=== PATIENT | female | born 1985 | race Caucasian/White ===

== ENCOUNTER 2019-02-17 07:02 | Emergency (ER) | payer OTHER ==
[~2019-02-17] VITALS: Ht 160 cm; Wt 56.0 kg
[2019-02-17 08:01] LABS: BILIRUBIN,URINE NEGATIVE (NEGATIVE); CLARITY,URINE CLEAR; COLOR,URINE YELLOW; GLUCOSE, URINE (UA) NEGATIVE (NEGATIVE); KETONES,URINE NEGATIVE (NEGATIVE); LEUKOCYTE ESTERASE ,URINE TRACE (NEGATIVE); NITRITE,URINE NEGATIVE (NEGATIVE); PROTEIN,URINE NEGATIVE (NEGATIVE)
[2019-02-17 08:12] LABS: AMORPHOUS SEDIMENT,UR MOD AMOR PHOSPHATE /LPF; BACTERIA,URINE NEGATIVE /HPF; RBC,URINE RARE /HPF
[2019-02-17 08:15] LABS: BASOPHILS % (AUTO) 0 % (0-10); EOSINOPHILS # (AUTO) 0.1 10^3/uL (0.0-0.3); EOSINOPHILS % (AUTO) 1 % (0-10); HEMATOCRIT 31 % (35-52); HEMOGLOBIN 10.4 G/DL (11.5-16.0); LYMPHOCYTES # (AUTO) 1.4 X 10^3 (1.0-4.0); LYMPHOCYTES % (AUTO) 11 % (12-44); MEAN CORPUSCULAR HEMOGLOBIN 32 PG (25-34); MEAN CORPUSCULAR HGB CONC 33 G/DL (32-36); MEAN CORPUSCULAR VOLUME 97 FL (80-99); MEAN PLATELET VOLUME 9.2 FL (7.4-10.4); MONOCYTES # (AUTO) 1.1 X 10^3 (0.0-1.0); MONOCYTES % (AUTO) 9 % (0-12); NEUTROPHILS # (AUTO) 9.6 X 10^3 (1.8-7.8); NEUTROPHILS % (AUTO) 79 % (42-75); PLATELET COUNT 274 10^3/uL (130-400); RED CELL DISTRIBUTION WIDTH 13.4 % (10.0-14.5); WHITE BLOOD COUNT 12.2 10^3/uL (4.3-11.0)
[2019-02-17] MEDS ORDERED: LACTATED RINGERS 1,000 ML IV ONE (08:32)
[2019-02-17] MEDS ORDERED: PROMETHAZINE INJ 25 MG/ML (PHENERGAN) AMP IVP ONE (08:45)
[2019-02-17 08:52] LABS: BUN/CREATININE RATIO 16; CALCIUM 8.7 MG/DL (8.5-10.1); CARBON DIOXIDE 23 MMOL/L (21-32); CHLORIDE 103 MMOL/L (98-107); GFR ESTIMATED > 60; GLUCOSE 83 MG/DL (70-105); SODIUM 136 MMOL/L (135-145)
--- NOTE | 2019-02-17 09:10 | ED GU-Female ---
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 PT STATES SHE IS 16WKS . DENIES A HX OF IRREGULAR BLEEDING WITH PREVIOUS Nursing Sepsis Screen: No Definite Risk Source: patient, police Exam Limitations: no limitations History of Present Illness Date Seen by Provider: Feb 17, 2019 Time Seen by Provider: 07:05 Initial Comments This 33-year-old woman at approximately 16 weeks gestational age presents to the emergency room with complaints of vaginal bleeding that started yesterday as bright red and has now become dark. She has some mild cramping associated with it. She also complains of some lightheadedness upon standing. She has had some nausea without vomiting. She established care with Dr. Alvarenga. She missed her ultrasound appointment and has not had an ultrasound yet for this . She did have a pelvic exam and has not been sexually active since then as she is incarcerated. She does have history of methamphetamine use with last use being 23 days ago. She denies any urinary changes. She is accompanied today by a certification officer. Allergies and Home Medications Allergies Coded Allergies: No Known Drug Allergies (Unverified , 02/17/19) Home Medications Promethazine HCl 12.5 Mg Tablet, 12.5 MG PO Q6H PRN for NAUSEA/VOMITING Prescribed by: JAUN AREVALO on 02/17/19 0913 Patient Home Medication List Home Medication List Reviewed: Yes Review of Systems Review of Systems Constitutional: no symptoms reported EENTM: no symptoms reported Respiratory: no symptoms reported Cardiovascular: no symptoms reported Gastrointestinal: no symptoms reported Genitourinary: see HPI : Yes Expected Date of Delivery: August 01, 2019 Musculoskeletal: no symptoms reported Skin: no symptoms reported Psychiatric/Neurological: No Symptoms Reported Endocrine: No Symptoms Reported Past Wymvrhb-Xvsonu-Dhwpyh Hx Past Med/Social Hx: Reviewed Nursing Past Med/Soc Hx Patient Social History Alcohol Use: Denies Use Recreational Drug Use: Yes Drug of Choice: meth hx Smoking Status: Current Everyday Smoker Type Used: Cigarettes Recent Foreign Travel: No Contact w/Someone Who Travel: No Recent Infectious Disease Expo: No Recent Hopitalizations: No Physical Abuse: No Sexual Abuse: No Mistreated: No Fear: No Immunizations Up To Date Tetanus Booster (TDap): Less than 5yrs Seasonal Allergies Seasonal Allergies: No Past Medical History Surgeries: Yes (cervical cysts removed.) Respiratory: No Cardiac: No Neurological: No : Yes Expected Date of Delivery: August 01, 2019 Reproductive Disorders: Yes (Cervical cyst) Genitourinary: No Gastrointestinal: No Musculoskeletal: No Endocrine: No HEENT: No Cancer: No Psychosocial: No Integumentary: No Blood Disorders: No Physical Exam Vital Signs Vital Signs - First Documented 02/17/19 07:36 Temp 36.9 Pulse 76 Resp 18 B/P (MAP) 90/62 (71) Pulse Ox 99 O2 Delivery Room Air Capillary Refill : Less Than 3 Seconds Height, Weight, BMI Height: '" Weight: lbs. oz. kg; 21.00 BMI Method: General Appearance: WD/WN, no apparent distress HEENT: PERRL/EOMI, normal ENT inspection Neck: normal inspection Cardiovascular: regular rate, rhythm, no edema, no murmur Respiratory: lungs clear, normal breath sounds, no respiratory distress, no accessory muscle use Gastrointestinal: normal bowel sounds, non tender, soft, other (Appropriately gravid for gestational age) Extremities: normal inspection, no pedal edema Neurologic/Psychiatric: it technician II-XII nml as tested, no motor/sensory deficits, alert, normal mood/affect, oriented x 3 Skin: normal color, warm/dry Progress/Results/Core Measures Suspected Sepsis Recent Fever Within 48 Hours: No Infection Criteria Present: Suspected New Infection New/Unexplained Altered Menta: No Sepsis Screen: No Definite Risk SIRS Temperature: Pulse: 76 Respiratory Rate: 18 Laboratory Tests 02/17/19 08:05: White Blood Count 12.2H Blood Pressure 90 /62 Mean: 71 Laboratory Tests 02/17/19 08:05: Creatinine 0.70, Platelet Count 274 Results/Orders Lab Results Laboratory Tests Test 02/17/19 07:53 02/17/19 08:05 Range/Units Urine Color YELLOW Urine Clarity CLEAR Urine pH 8.0 5-9 Urine Specific [place] 1.015 L 1.016-1.022 Urine Protein NEGATIVE NEGATIVE Urine Glucose (UA) NEGATIVE NEGATIVE Urine Ketones NEGATIVE NEGATIVE Urine Nitrite NEGATIVE NEGATIVE Urine Bilirubin NEGATIVE NEGATIVE Urine Urobilinogen 0.2 < = 1.0 MG/DL Urine Leukocyte Esterase TRACE NEGATIVE Urine RBC (Auto) 1+ H NEGATIVE Urine RBC RARE /HPF Urine WBC 2-5 /HPF Urine Squamous Epithelial Cells 2-5 /HPF Urine Crystals NONE /LPF Urine Amorphous Sediment MOD KVNG PHOSPHATE H /LPF Urine Bacteria NEGATIVE /HPF Urine Casts NONE /LPF Urine Mucus NEGATIVE /LPF Urine Culture Indicated NO White Blood Count 12.2 H 4.3-11.0 10^3/uL Red Blood Count 3.24 L 4.35-5.85 10^6/uL Hemoglobin 10.4 L 11.5-16.0 G/DL Hematocrit 31 L 35-52 % Mean Corpuscular Volume 97 80-99 FL Mean Corpuscular Hemoglobin 32 25-34 PG Mean Corpuscular Hemoglobin Concent 33 32-36 G/DL Red Cell Distribution Width 13.4 10.0-14.5 % Platelet Count 274 130-400 10^3/uL Mean Platelet Volume 9.2 7.4-10.4 FL Neutrophils (%) (Auto) 79 H 42-75 % Lymphocytes (%) (Auto) 11 L 12-44 % Monocytes (%) (Auto) 9 0-12 % Eosinophils (%) (Auto) 1 0-10 % Basophils (%) (Auto) 0 0-10 % Neutrophils # (Auto) 9.6 H 1.8-7.8 X 10^3 Lymphocytes # (Auto) 1.4 1.0-4.0 X 10^3 Monocytes # (Auto) 1.1 H 0.0-1.0 X 10^3 Eosinophils # (Auto) 0.1 0.0-0.3 10^3/uL Basophils # (Auto) 0.0 0.0-0.1 10^3/uL Sodium Level 136 135-145 MMOL/L Potassium Level 4.0 3.6-5.0 MMOL/L Chloride Level 103 98-107 MMOL/L Carbon Dioxide Level 23 21-32 MMOL/L Anion Gap 10 5-14 MMOL/L Blood Urea Nitrogen 11 7-18 MG/DL Creatinine 0.70 0.60-1.30 MG/DL Estimat Glomerular Filtration Rate > 60 BUN/Creatinine Ratio 16 Glucose Level 83 70-105 MG/DL Calcium Level 8.7 8.5-10.1 MG/DL My Orders Orders - JAUN FUNES MD Cbc With Automated Diff (02/17/19 07:05) Ua Culture If Indicated (02/17/19 07:05) Abo Rh Type (02/17/19 07:05) Basic Metabolic Panel (02/17/19 08:32) Ed Iv/Invasive Line Start (02/17/19 08:32) Lactated Ringers (Lr 1000 Ml Iv Solution (02/17/19 08:32) Promethazine Injection (Phenergan Injec (02/17/19 08:45) Medications Given in ED Current Medications Medications Dose Ordered Sig/Rob Route Start Time Stop Time Status Last Admin Dose Admin Lactated Ringer's 1,000 ml @ 0 mls/hr Q0M ONCE IV 02/17/19 08:32 02/17/19 08:34 DC 02/17/19 08:41 1,000 MLS/HR Promethazine HCl 12.5 mg ONCE ONCE IVP 02/17/19 08:45 02/17/19 08:46 DC 02/17/19 08:41 12.5 MG Vital Signs/I&O 02/17/19 10:05 Pulse 88 Resp 20 B/P (MAP) 93/52 Pulse Ox 99 O2 Delivery Room Air Capillary Refill : Less Than 3 Seconds Blood Pressure Mean: 71 POS Progress Note : Progress Note heart tones were 130s to 150 by Doppler. Workup was unremarkable. Blood type is a positive. I discussed the case with Dr. Garibay who will help make sure patient has follow-up in the clinic. Departure Impression Primary Impression: Vaginal bleeding during Additional Impressions: Dizziness Nausea Disposition: 01 HOME, SELF-CARE Condition: Improved Departure-Patient Inst. Decision time for Depature: 09:45 Referrals: [facility] (PCP/Family) Primary Care Physician Patient Instructions: Bleeding With (DC) Add. Discharge Instructions: Drink plenty of clear liquids to stay well-hydrated. Use Phenergan (promethazine) as prescribed for nausea and vomiting. Follow-up with the [facility] as soon as possible to obtain an ultrasound and a checkup. Please call tomorrow morning for arrangements. Return to the emergency room if you have worsening pain, significant increase in bleeding, worsening dizziness, or develop fevers over 100. All discharge instructions reviewed with patient and/or family. Voiced understanding. Scripts Promethazine HCl (Promethazine HCl) 12.5 Mg Tablet 12.5 MG PO Q6H PRN for NAUSEA/VOMITING, #20 TAB Prov: BRUEGGEMANN,JAUN T MD 02/17/19 Copy Copies To 1: BRAD ALVARENGA MD, JOSHUA T MD Feb 17, 2019 09:09 POS
[2019-02-17] MEDS ORDERED: PROM12.511 PO (09:50)
[2019-02-17 10:05] VITALS: BP 93/52
== END 2019-02-17 10:05 | disposition home or self-care (01) ==
LOC: ER 07:04
DX: O20.9 Hemorrhage in early pregnancy, unspecified (principal); O26.892 Other specified pregnancy related conditions, second trimester; R42 Dizziness and giddiness; R11.0 Nausea; O99.332 Smoking (tobacco) complicating pregnancy, second trimester; F17.210 Nicotine dependence, cigarettes, uncomplicated; Z3A.16 16 weeks gestation of pregnancy
CPT/HCPCS: 36415; 80048; 81000; 85025; 86900; 86901; 96361; 96374

== ENCOUNTER 2019-05-26 21:12 | Outpatient (CLI) | payer MEDICAID ==
[~2019-05-26] VITALS: Ht 160 cm; Wt 72.9 kg
[~2019-05-26 21:12] MED LIST: PROM12.511 PO
--- NOTE | 2019-05-26 21:15 | NUR ---
TWIN BEAVER presented to unit via AMBULATORY from ED, with c/o 28 5/7 SHARP PAIN/PRESSURE . TWIN BEAVER weighed, gowned, voided, and to bed. EFHM and TOCO applied, VS taken. TWIN BEAVER oriented to bed controls, call light, TV, heat, and A/C controls.
[2019-05-26 21:45] LABS: BILIRUBIN,URINE NEGATIVE (NEGATIVE); CLARITY,URINE CLEAR; COLOR,URINE YELLOW; GLUCOSE, URINE (UA) NEGATIVE (NEGATIVE); KETONES,URINE NEGATIVE (NEGATIVE); LEUKOCYTE ESTERASE ,URINE NEGATIVE (NEGATIVE); NITRITE,URINE NEGATIVE (NEGATIVE); PROTEIN,URINE NEGATIVE (NEGATIVE)
[2019-05-26 21:51] LABS: BACTERIA,URINE TRACE /HPF; WBC,URINE RARE /HPF
[2019-05-26 21:56] LABS: AMPHETAMINE SCREEN, URINE NEGATIVE (NEGATIVE); BARBITURATE SCREEN URINE NEGATIVE (NEGATIVE); BENZODIAZEPINES SCREEN URINE NEGATIVE (NEGATIVE); CANNABINOID SCREEN, URINE NEGATIVE (NEGATIVE); COCAINE SCREEN URINE NEGATIVE (NEGATIVE); METHADONE STAT NEGATIVE (NEGATIVE); METHAMPHETAMINE SCREEN URINE S NEGATIVE (NEGATIVE); OPIATE SCREEN URINE NEGATIVE (NEGATIVE); OXYCODONE STAT NEGATIVE (NEGATIVE); PROPOXYPHENE STAT NEGATIVE (NEGATIVE); TRICYCLIC ANTIDEPRESSANTS SCRE NEGATIVE (NEGATIVE)
[2019-05-26 22:33] VITALS: BP 127/77
--- NOTE | 2019-05-26 22:35 | NUR ---
notified of pt's arrival and complaint. u/a and tracing reviewed. New orders received.
[2019-05-26 22:59] LABS: BASOPHILS % (AUTO) 0 % (0-10); EOSINOPHILS # (AUTO) 0.3 10^3/uL (0.0-0.3); EOSINOPHILS % (AUTO) 1 % (0-10); HEMATOCRIT 32 % (35-52); HEMOGLOBIN 10.7 G/DL (11.5-16.0); LYMPHOCYTES # (AUTO) 2.2 X 10^3 (1.0-4.0); LYMPHOCYTES % (AUTO) 12 % (12-44); MEAN CORPUSCULAR HEMOGLOBIN 33 PG (25-34); MEAN CORPUSCULAR HGB CONC 34 G/DL (32-36); MEAN CORPUSCULAR VOLUME 100 FL (80-99); MEAN PLATELET VOLUME 9.4 FL (7.4-10.4); MONOCYTES # (AUTO) 1.9 X 10^3 (0.0-1.0); MONOCYTES % (AUTO) 10 % (0-12); NEUTROPHILS # (AUTO) 13.7 X 10^3 (1.8-7.8); NEUTROPHILS % (AUTO) 76 % (42-75); PLATELET COUNT 302 10^3/uL (130-400); RED CELL DISTRIBUTION WIDTH 12.4 % (10.0-14.5); WHITE BLOOD COUNT 18.1 10^3/uL (4.3-11.0)
--- NOTE | 2019-05-26 23:00 | NUR ---
notified of lab results. new orders received.
[2019-05-26 23:12] LABS: BAND NEUTROPHILS 0 %; BASOPHILS % (MANUAL) 0 %; EOSINOPHILS % (MANUAL) 2 %; LYMPHOCYTES % (MANUAL) 16 %; MONOCYTES % (MANUAL) 5 %; NEUTROPHILS % (MANUAL) 77 %; RBC MORPH NORMAL; TOXIC GRANULATION/VACUOLAZATIO 1+
[2019-05-26] MEDS ORDERED: ACETAMINOPHEN 325 MG TABLET PO ONE (23:15)
--- NOTE | 2019-05-27 00:36 | NUR ---
Pt reports she is feeling a lot better and ready for discharge. Discharge instructions verbalized. labor precautions given. Pt dc'd home with s/o at side.
== END 2019-05-27 00:40 | disposition home or self-care (01) ==
LOC: WSo 21:12
PROVIDERS: ATTEND Family Medicine
DX: O99.89 Other specified diseases and conditions complicating pregnancy, childbirth and the puerperium (principal); Z3A.28 28 weeks gestation of pregnancy
CPT/HCPCS: 36415; 80306; 81000; 85007; 85027; 99213

== ENCOUNTER 2019-06-12 15:49 | Observation (INO) | payer MEDICAID ==
[~2019-06-12] VITALS: Ht 160 cm; Wt 71.4 kg
[2019-06-12] VITALS (8 sets, daily range): BP systolic 80–101; BP diastolic 43–58
--- NOTE | 2019-06-12 15:43 | NUR ---
TWIN BEAVER presented to unit via AMBULATORY from OFFICE, with c/o BLEEDING IN . TWIN BEAVER weighed, gowned, voided, and to bed. EFHM and TOCO applied, VS taken. TWIN BEAVER oriented to bed controls, call light, TV, heat, and A/C controls.
[2019-06-12] MEDS: D5 LR IV SOLUTION 1,000 ML IV SCH ×2 (16:20→23:07)
[2019-06-12 16:39] LABS: BASOPHILS # (AUTO) 0.1 10^3/uL (0.0-0.1); BASOPHILS % (AUTO) 1 % (0-10); EOSINOPHILS # (AUTO) 0.2 10^3/uL (0.0-0.3); EOSINOPHILS % (AUTO) 2 % (0-10); HEMATOCRIT 30 % (35-52); HEMOGLOBIN 10.2 G/DL (11.5-16.0); LYMPHOCYTES # (AUTO) 1.9 X 10^3 (1.0-4.0); LYMPHOCYTES % (AUTO) 18 % (12-44); MEAN CORPUSCULAR HEMOGLOBIN 33 PG (25-34); MEAN CORPUSCULAR HGB CONC 34 G/DL (32-36); MEAN CORPUSCULAR VOLUME 97 FL (80-99); MEAN PLATELET VOLUME 9.9 FL (7.4-10.4); MONOCYTES # (AUTO) 1.1 X 10^3 (0.0-1.0); MONOCYTES % (AUTO) 11 % (0-12); NEUTROPHILS # (AUTO) 7.1 X 10^3 (1.8-7.8); NEUTROPHILS % (AUTO) 69 % (42-75); PLATELET COUNT 282 10^3/uL (130-400); RED CELL DISTRIBUTION WIDTH 12.6 % (10.0-14.5); WHITE BLOOD COUNT 10.4 10^3/uL (4.3-11.0)
[2019-06-12 16:54] LABS: AMPHETAMINE SCREEN, URINE NEGATIVE (NEGATIVE); BARBITURATE SCREEN URINE NEGATIVE (NEGATIVE); BENZODIAZEPINES SCREEN URINE NEGATIVE (NEGATIVE); CANNABINOID SCREEN, URINE NEGATIVE (NEGATIVE); COCAINE SCREEN URINE NEGATIVE (NEGATIVE); METHADONE STAT NEGATIVE (NEGATIVE); METHAMPHETAMINE SCREEN URINE S NEGATIVE (NEGATIVE); OPIATE SCREEN URINE NEGATIVE (NEGATIVE); OXYCODONE STAT NEGATIVE (NEGATIVE); PROPOXYPHENE STAT NEGATIVE (NEGATIVE); TRICYCLIC ANTIDEPRESSANTS SCRE NEGATIVE (NEGATIVE)
[2019-06-12 17:04] LABS: ALANINE AMINOTRANSFERASE 12 U/L (0-55); ALBUMIN 3.5 GM/DL (3.2-4.5); ALKALINE PHOSPHATASE 98 U/L (40-136); BILIRUBIN,TOTAL 0.3 MG/DL (0.1-1.0); BUN/CREATININE RATIO 13; CALCIUM 8.8 MG/DL (8.5-10.1); CARBON DIOXIDE 24 MMOL/L (21-32); CHLORIDE 107 MMOL/L (98-107); CREATININE SERUM 0.68 MG/DL (0.60-1.30); GFR ESTIMATED > 60; GLUCOSE 79 MG/DL (70-105); POTASSIUM 3.7 MMOL/L (3.6-5.0); SODIUM 138 MMOL/L (135-145); TOTAL PROTEIN 6.7 GM/DL (6.4-8.2)
[2019-06-12 17:32] LABS: PROTHROMBIN TIME PATIENT 13.7 SEC (12.2-14.7)
--- NOTE | 2019-06-12 17:33 | NUR ---
Dr Khoury called and labs reported as well as FHR, Ctx pattern, current bleeding, pt requesting food. Order rec'd for regular diet.
[2019-06-12] MEDS: CATHETER FLUSH 10 ML SYR IV SCH (23:02)
[2019-06-13 04:28] VITALS: BP 89/47
[2019-06-13] MEDS: D5 LR IV SOLUTION 1,000 ML IV SCH ×2 (05:45→12:42)
[2019-06-13] MEDS: CATHETER FLUSH 10 ML SYR IV SCH (06:21)
[2019-06-13 07:40] VITALS: BP 101/50
[2019-06-13 10:10] VITALS: BP 101/55
[2019-06-13 12:45] VITALS: BP 101/57
--- NOTE | 2019-06-13 15:10 | NUR ---
dr prieto updated on pt report. 24 hr of fht monitoring will turn at 1600. pt states she has not had any bleeding when she wipes the last 2 times she has gotten up to the bathroom. when she has gotten bleedng when she wiped, today it has been light pink in color and light amount. pt states that her abd is slightly tender when rn presses on abd. rn has had a difficult time keeping on fht monitoring, lots of movement. Dr prieto talked to dr ruelas and they want to prophylacticly treat her for GC/chyl and then discharge her home. Pt will see dr ruelas next week in office. dr prieto will place orders.
[2019-06-13] MEDS ORDERED: [UNRECOGNIZED DRUG - OTHER] IV NR ×3 (15:15)
[2019-06-13] MEDS ORDERED: CEFTRIAXONE FOR IV NR ×3 (15:15)
[2019-06-13] MEDS ORDERED: AZITHROMYCIN 250 MG TAB (ZITHROMAX) PO NR (15:15)
--- NOTE | 2019-06-13 15:15 | Short Stay Summary ---
HPI History of Present Illness: 34 yo F that is 30 wga here for bleeding in . Patient was seen by Dr Vines for pelvic pain and bleeding. States that she feel yesterday on her butt. BPP and NST at clinic were normal. After discussion with Dr Vines on SVE patient had dark old blood coming from cervical os but no bright red blood. Patient stat es that her pain has improved. Denies any red blood and the dark blood is less then it was yesterday. Fetus with good reactive strip on monitoring. Source: patient Exam Limitations: no limitations Date seen by provider: Jun 13, 2019 Time Seen by Provider: 10:05 Attending Physician Jv Khoury MD [facility] Consult Date of Admission Jun 12, 2019 at 15:49 Home Medications Home Medications Reviewed patient Home Medication Reconciliation performed by pharmacy medication reconciliations hvac technician and/or nursing. Patients Allergies have been reviewed. Allergies Coded Allergies: No Known Drug Allergies (Unverified , 02/17/19) ESO-Ohbpqy-Gblsyj Hx Patient Social History Drug of Choice: meth hx last used 2 weeks ago Type Used: Cigarettes 2nd Hand Smoke Exposure: No Recent Foreign Travel: No Contact w/other who traveled: No Recent Hopitalizations: No Immunizations Up To Date Tetanus Booster (TDap): Less than 5yrs Family Medical History Significant Family History: No Pertinent Family Hx Review of Systems (CHC) Constitutional: no symptoms reported; No chills, No fever, No malaise EENTM: no symptoms reported; No mouth pain, No nose congestion, No nose pain, No throat pain Respiratory: no symptoms reported; No cough, No dyspnea on exertion, No short of breath Cardiovascular: no symptoms reported; No chest pain, No edema, No palpitations Gastrointestinal: abdominal pain; No loss of appetite Genitourinary: no symptoms reported; No dysuria, No frequency, No hematuria : Yes Musculoskeletal: no symptoms reported; No back pain, No joint pain, No muscle pain Skin: no symptoms reported; No lesions, No rash Psychiatric/Neurological: No Symptoms Reported; Denies Headache, Denies Weakness Reviewed Test Results Reviewed Test Results Lab Laboratory Tests Test 06/12/19 15:50 06/12/19 16:20 Range/Units Urine Opiates Screen NEGATIVE NEGATIVE Urine Oxycodone Screen NEGATIVE NEGATIVE Urine Methadone Screen NEGATIVE NEGATIVE Urine Propoxyphene Screen NEGATIVE NEGATIVE Urine Barbiturates Screen NEGATIVE NEGATIVE Ur Tricyclic Antidepressants Screen NEGATIVE NEGATIVE Urine Phencyclidine Screen NEGATIVE NEGATIVE Urine Amphetamines Screen NEGATIVE NEGATIVE Urine Methamphetamines Screen NEGATIVE NEGATIVE Urine Benzodiazepines Screen NEGATIVE NEGATIVE Urine Cocaine Screen NEGATIVE NEGATIVE Urine Cannabinoids Screen NEGATIVE NEGATIVE White Blood Count 10.4 4.3-11.0 10^3/uL Red Blood Count 3.13 L 4.35-5.85 10^6/uL Hemoglobin 10.2 L 11.5-16.0 G/DL Hematocrit 30 L 35-52 % Mean Corpuscular Volume 97 80-99 FL Mean Corpuscular Hemoglobin 33 25-34 PG Mean Corpuscular Hemoglobin Concent 34 32-36 G/DL Red Cell Distribution Width 12.6 10.0-14.5 % Platelet Count 282 130-400 10^3/uL Mean Platelet Volume 9.9 7.4-10.4 FL Neutrophils (%) (Auto) 69 42-75 % Lymphocytes (%) (Auto) 18 12-44 % Monocytes (%) (Auto) 11 0-12 % Eosinophils (%) (Auto) 2 0-10 % Basophils (%) (Auto) 1 0-10 % Neutrophils # (Auto) 7.1 1.8-7.8 X 10^3 Lymphocytes # (Auto) 1.9 1.0-4.0 X 10^3 Monocytes # (Auto) 1.1 H 0.0-1.0 X 10^3 Eosinophils # (Auto) 0.2 0.0-0.3 10^3/uL Basophils # (Auto) 0.1 0.0-0.1 10^3/uL Prothrombin Time 13.7 12.2-14.7 SEC INR Comment 1.0 0.8-1.4 Activated Partial Thromboplast Time 27 24-35 SEC Fibrinogen 535 H 221-496 MG/DL Sodium Level 138 135-145 MMOL/L Potassium Level 3.7 3.6-5.0 MMOL/L Chloride Level 107 98-107 MMOL/L Carbon Dioxide Level 24 21-32 MMOL/L Anion Gap 7 5-14 MMOL/L Blood Urea Nitrogen 9 7-18 MG/DL Creatinine 0.68 0.60-1.30 MG/DL Estimat Glomerular Filtration Rate > 60 BUN/Creatinine Ratio 13 Glucose Level 79 70-105 MG/DL Calcium Level 8.8 8.5-10.1 MG/DL Corrected Calcium 9.2 8.5-10.1 MG/DL Total Bilirubin 0.3 0.1-1.0 MG/DL Aspartate Amino Transf (AST/SGOT) 19 5-34 U/L Alanine Aminotransferase (ALT/SGPT) 12 0-55 U/L Alkaline Phosphatase 98 40-136 U/L Total Protein 6.7 6.4-8.2 GM/DL Albumin 3.5 3.2-4.5 GM/DL Physical Exam-([facility]) Physical Exam Vital Signs VS - Last 72 Hours, by Label 06/12/19 06/12/19 06/12/19 06/12/19 16:00 17:00 17:09 17:11 Temp 37.0 37.0 37.0 Pulse 93 81 93 93 Resp 18 18 18 18 B/P (MAP) 101/58 (72) 91/52 (65) Pulse Ox 97 97 O2 Delivery Room Air Room Air 06/12/19 06/12/19 06/12/19 06/12/19 18:00 19:00 20:00 21:50 Temp 36.6 Pulse 99 84 72 78 Resp 18 18 18 18 B/P (MAP) 100/58 (72) 99/56 (70) 94/53 (67) 80/43 (55) Pulse Ox 96 O2 Delivery Room Air Room Air Room Air 06/13/19 06/13/19 04:28 07:40 Temp 36.7 36.8 Pulse 75 73 Resp 18 18 B/P (MAP) 89/47 (61) 101/50 (67) Pulse Ox 97 O2 Delivery Room Air Room Air Capillary Refill : Less Than 3 Seconds General Appearance: WD/WN, no apparent distress HEENT: PERRL/EOMI Neck: non-tender, full range of motion, supple, normal inspection Respiratory: chest non-tender, lungs clear, normal breath sounds, no respiratory distress, no accessory muscle use Cardiovascular: normal peripheral pulses, no murmur Gastrointestinal: normal bowel sounds, soft, no organomegaly, other (gravid uterus, mild pressure with palpation) Back: no CVA tenderness, no vertebral tenderness Extremities: normal range of motion, non-tender, normal inspection, no calf tenderness, normal capillary refill 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, no motor/sensory deficits, alert, normal mood/affect, oriented x 3 Skin: normal color, warm/dry Lymphatic: no adenopathy Short Stay Diagnosis Discharge Diagnosis-Short Stay Admission Diagnosis Bleeding in Third trimester Final Discharge Diagnosis See Above Conclusion Plan See problem list Copy Copies To 1: BRAD VINES MD Assessment/Plan Assessment/Plan Admission Status: Observation (1) Vaginal bleeding in Assessment & Plan: - Patient monitored for 24 hrs, Reactive strip with improved abdominal pain and decrease in bleeding, patient placed on pelvic rest (2) 28 weeks gestation of (3) Abdominal pain affecting JV KHOURY MD Jun 13, 2019 15:15
--- NOTE | 2019-06-13 15:23 | Discharge Summary ---
Discharge [facility] Reconcile Patient Problems Problems Reviewed?: Yes Discharge Medications New, Converted or Re-Newed RX: Other (No new scripts) Patient Instructions Goal/Follow Up Appt: Enid Vines next week Patient Instructions: - Pelvic rest, no intercourse Activity & Diet Discharge Diet: No Restrictions Activity as Tolerated: Yes JV JIMENEZ MD Jun 13, 2019 15:23
== END 2019-06-13 16:10 | disposition home or self-care (01) ==
LOC: LDRP 15:49
PROVIDERS: ADMIT Family Medicine; ATTEND Family Medicine
DX: O46.93 Antepartum hemorrhage, unspecified, third trimester (principal); O99.89 Other specified diseases and conditions complicating pregnancy, childbirth and the puerperium; R10.9 Unspecified abdominal pain; Z87.891 Personal history of nicotine dependence; Z3A.28 28 weeks gestation of pregnancy
CPT/HCPCS: 36415; 80053; 80306; 85025; 85384; 85610; 85730; 86850; 86900; 86901; 96361; 96374; 99211; G0378

== ENCOUNTER 2019-08-04 12:38 | Outpatient (CLI) | payer MEDICAID ==
[~2019-08-04] VITALS: Ht 160 cm; Wt 75.4 kg
[2019-08-04 12:40] VITALS: BP 109/71
--- NOTE | 2019-08-04 12:40 | NUR ---
TWIN BEAVER presented to unit via ambulation from ED, accompanied by self, with c/o LEAKING FLUID. TWIN BEAVER weighed, gowned, voided, and to bed. EFHM and TOCO applied, VS taken. TWIN BEAVER oriented to bed controls, call light, TV, heat, and A/C controls.
[2019-08-04 13:00] VITALS: BP 109/71
[2019-08-04 13:30] VITALS: BP 109/71
[2019-08-04 13:58] LABS: BILIRUBIN,URINE NEGATIVE (NEGATIVE); CLARITY,URINE CLEAR; COLOR,URINE YELLOW; GLUCOSE, URINE (UA) NEGATIVE (NEGATIVE); KETONES,URINE NEGATIVE (NEGATIVE); LEUKOCYTE ESTERASE ,URINE 2+ (NEGATIVE); NITRITE,URINE NEGATIVE (NEGATIVE); PH,URINE 6.5 (5-9); PROTEIN,URINE NEGATIVE (NEGATIVE)
[2019-08-04 14:07] LABS: BACTERIA,URINE FEW /HPF; TRICHOMONAS,URINE MODERATE /HPF
[2019-08-04 14:27] LABS: AMPHETAMINE SCREEN, URINE NEGATIVE (NEGATIVE); BARBITURATE SCREEN URINE NEGATIVE (NEGATIVE); BENZODIAZEPINES SCREEN URINE NEGATIVE (NEGATIVE); CANNABINOID SCREEN, URINE NEGATIVE (NEGATIVE); COCAINE SCREEN URINE NEGATIVE (NEGATIVE); METHADONE STAT NEGATIVE (NEGATIVE); METHAMPHETAMINE SCREEN URINE S NEGATIVE (NEGATIVE); OPIATE SCREEN URINE NEGATIVE (NEGATIVE); OXYCODONE STAT NEGATIVE (NEGATIVE); PROPOXYPHENE STAT NEGATIVE (NEGATIVE); TRICYCLIC ANTIDEPRESSANTS SCRE NEGATIVE (NEGATIVE)
--- NOTE | 2019-08-04 14:55 | NUR ---
dr gonzalez called reviewed vitals, c/o, labs, fhr and contraction pattern. continuing to observe at this time.
--- NOTE | 2019-08-04 17:20 | NUR ---
Dr. Soni updated on patient's status. New orders received (Continue to monitor).
--- NOTE | 2019-08-04 22:20 | NUR ---
Discharge packet given and explained, understanding voiced, no concerns noted, pt up to change for dismissal.
--- NOTE | 2019-08-04 22:30 | NUR ---
Pt ambulatory off unit at this time accompanied by s/o.
--- NOTE | 2019-08-06 11:03 | Physician Query-Final Dx ---
Clinic Account Progress/Dx Physician Query: Please give diagnosis Please include # of weeks gestation Date of Service August 04, 2019 at 12:38 [address]ER August 06, 2019 11:03
== END 2019-08-04 22:30 | disposition home or self-care (01) ==
LOC: LDRP 12:38 → WSo 12:38
PROVIDERS: ATTEND Family Medicine
DX: O88.119 Amniotic fluid embolism in pregnancy, unspecified trimester (principal); Z3A.00 Weeks of gestation of pregnancy not specified
CPT/HCPCS: 80306; 81000; 87088; 99214

== ENCOUNTER 2019-08-05 10:50 | Outpatient (CLI) | payer MEDICAID ==
[~2019-08-05] VITALS: Ht 160 cm; Wt 75.4 kg
--- NOTE | 2019-08-05 10:57 | NUR ---
TWIN BEAVER presented to unit via ambulation from ED, accompanied by S.O., with c/o CONTRACTIONS. TWIN BEAVER weighed, gowned, voided, and to bed. EFHM and TOCO applied, VS taken. TWIN BEAVER oriented to bed controls, call light, TV, heat, and A/C controls.
[2019-08-05 11:15] VITALS: BP 114/70
[2019-08-05 11:16] VITALS: BP 114/70
[2019-08-05 11:20] VITALS: BP 114/70
[2019-08-05 11:46] LABS: BILIRUBIN,URINE NEGATIVE (NEGATIVE); CLARITY,URINE SL CLOUDY; COLOR,URINE YELLOW; GLUCOSE, URINE (UA) NEGATIVE (NEGATIVE); KETONES,URINE NEGATIVE (NEGATIVE); LEUKOCYTE ESTERASE ,URINE 2+ (NEGATIVE); NITRITE,URINE NEGATIVE (NEGATIVE); PROTEIN,URINE NEGATIVE (NEGATIVE)
[2019-08-05 11:56] LABS: BACTERIA,URINE FEW /HPF; RBC,URINE RARE /HPF; TRICHOMONAS,URINE FEW /HPF; WBC,URINE 25-50 /HPF
--- NOTE | 2019-08-05 12:14 | NUR ---
dr prieto called by this rn at this time with pt report. pt CO uc q 10min and losing mucus plug. pt 38.5wk, . currently irregular UC 3-10 min apart over the last hour. Reactive FHT strip with accels, had one random variable. Pt was here yesterday /last night for same complaint. positive for tric, not treated, Rx was called to [facility] pharmacy but pt has not filled. urinalysis results read to dr. alfred RN SVE is 2cm, which is no change from yesterdays SVE. Dr prieto orders to give pt Flagyl 2g one time dose PO, vistaril 25, make sure pt follows up with dr ruelas in office this week (pt follows up tomorrow), pt may DC to home at this time time.
[2019-08-05] MEDS ORDERED: hydrOXYzine (VISTARIL/ATARAX) 25 MG capsule/tablet PO NR (12:30)
[2019-08-05] MEDS ORDERED: metroNIDAZOLE 500 MG (FLAGYL) TAB PO NR (12:30)
--- NOTE | 2019-08-06 11:00 | Physician Query-Final Dx ---
Clinic Account Progress/Dx Physician Query: Please give diagnosis Please include # weeks gestation Date of Service August 05, 2019 at 10:50 [address]APER August 06, 2019 11:00
== END 2019-08-05 12:45 | disposition home or self-care (01) ==
LOC: WSo 10:50 → LDRP 10:50 → WSo 12:45
PROVIDERS: ATTEND Family Medicine
DX: O62.9 Abnormality of forces of labor, unspecified (principal); Z3A.38 38 weeks gestation of pregnancy
CPT/HCPCS: 81000; 87088; 99213

== ENCOUNTER 2019-08-13 05:05 | Inpatient (IN) | payer MEDICAID ==
[2019-08-13] VITALS (37 sets, daily range): BP systolic 90–127; BP diastolic 44–83
[~2019-08-13] VITALS: Ht 160 cm; Wt 75.3 kg
--- NOTE | 2019-08-13 05:15 | NUR ---
TWIN BEAVER presented to unit via ambulation from home/ED, accompanied by so, for INDUCTION. TWIN BEAVER weighed, gowned, voided, and to bed. EFHM and TOCO applied, VS taken. TWIN BEAVER oriented to bed controls, call light, TV, heat, and A/C controls.
[2019-08-13] MEDS ORDERED: D5 LR IV SOLUTION 1,000 ML IV ONE (05:17)
[2019-08-13] MEDS ORDERED: OXYTOCIN PRE-MIX DRIP 500 ML IV SCH ×2 (05:40→11:48)
[2019-08-13] MEDS ORDERED: D5 LR IV SOLUTION 1,000 ML IV SCH ×2 (05:40→11:48)
[2019-08-13 05:55] LABS: BASOPHILS % (AUTO) 0 % (0-10); EOSINOPHILS # (AUTO) 0.3 10^3/uL (0.0-0.3); EOSINOPHILS % (AUTO) 2 % (0-10); HEMATOCRIT 36 % (35-52); HEMOGLOBIN 12.2 G/DL (11.5-16.0); LYMPHOCYTES # (AUTO) 2.3 X 10^3 (1.0-4.0); LYMPHOCYTES % (AUTO) 21 % (12-44); MEAN CORPUSCULAR HEMOGLOBIN 33 PG (25-34); MEAN CORPUSCULAR HGB CONC 34 G/DL (32-36); MEAN CORPUSCULAR VOLUME 96 FL (80-99); MEAN PLATELET VOLUME 10.8 FL (7.4-10.4); MONOCYTES # (AUTO) 1.2 X 10^3 (0.0-1.0); MONOCYTES % (AUTO) 11 % (0-12); NEUTROPHILS # (AUTO) 7.3 X 10^3 (1.8-7.8); NEUTROPHILS % (AUTO) 66 % (42-75); PLATELET COUNT 270 10^3/uL (130-400); RED CELL DISTRIBUTION WIDTH 14.3 % (10.0-14.5); WHITE BLOOD COUNT 11.2 10^3/uL (4.3-11.0)
[2019-08-13] MEDS ORDERED: CATHETER FLUSH 10 ML SYR IV SCH (06:00)
[2019-08-13] MEDS ORDERED: FERR-84 PO (06:13)
[2019-08-13] MEDS ORDERED: SERT50TA2 PO (06:13)
[2019-08-13] MEDS ORDERED: PREN-142 PO (06:13)
[2019-08-13 06:22] LABS: AMPHETAMINE SCREEN, URINE NEGATIVE (NEGATIVE); BARBITURATE SCREEN URINE NEGATIVE (NEGATIVE); BENZODIAZEPINES SCREEN URINE NEGATIVE (NEGATIVE); CANNABINOID SCREEN, URINE NEGATIVE (NEGATIVE); COCAINE SCREEN URINE NEGATIVE (NEGATIVE); METHADONE STAT NEGATIVE (NEGATIVE); METHAMPHETAMINE SCREEN URINE S NEGATIVE (NEGATIVE); OPIATE SCREEN URINE NEGATIVE (NEGATIVE); OXYCODONE STAT NEGATIVE (NEGATIVE); PROPOXYPHENE STAT NEGATIVE (NEGATIVE); TRICYCLIC ANTIDEPRESSANTS SCRE NEGATIVE (NEGATIVE)
[2019-08-13] MEDS ORDERED: OXYTOCIN PRE-MIX DRIP 500 ML IV ONE (06:24)
--- NOTE | 2019-08-13 08:04 | NUR ---
DR THRASHER, OB CLINICAL CARE LEADER, MADE AWARE OF PT: IOL PT OF DR ALVARENGA CURRENTLY 39WKS 3D, , 4.5CM, AROM.
--- NOTE | 2019-08-13 08:32 | History & Physical-OB ---
OB - Chief Complaint & HPI Date/Time Date of Admission: Date of Admission: August 13, 2019 at 05:05 Date seen by a Provider: August 13, 2019 Time Seen by a Provider: 07:30 Chief Complaint/History OB-Reason for Admission/Chief: Induction of Labor Hx : 2 Hx Para: 1 Expected Date of Delivery: August 17, 2019 Gestational Age in Weeks: 39 Gestational Age in Days: 3 Indication for induction: maternal discomfort Admission Nurse Assessment Rev: Yes History of Labs A+, antibody neg, RI. HIV/HepB/RPR NR. GC neg, Chlamydia pos at intake, treated and ALEKSANDER neg. Glucola nml, GBS neg. Allergies and Home Medications Allergies Coded Allergies: No Known Drug Allergies (Unverified , 02/17/19) Home Medications Ferrous Sulfate 325 Mg Tablet, 325 MG PO DAILY, (Reported) Vit No.124/Iron/FA 1 Each Tablet, 1 EACH PO DAILY, (Reported) Sertraline HCl 50 Mg Tablet, 50 MG PO DAILY, (Reported) Patient Home Medication List Home Medication List Reviewed: Yes OB - History Hx of Present Care: Yes Ultrasounds: Normal mid trimester US Medical Complications: Genitourinary (chlamydia and trichomonas treated during ), Psychiatric (Depression on sertraline), Other (history of methamphetamine use, last use around 04/27/19) Information Induced Hypertension: No Maternal Gestational Diabetes: No Hemorrhage: No Obstetrical History Hx : 2 Hx Para: 1 Hx # Term Pregnancies: 1 Hx # Pregnancies: 0 Number of Living Children: 1 Hx Termination: No Hx Multiple Gestation: No Hx Ectopic : No Hx Stillbirth: No Hx Complication: No Hx Induced Hypertens: No Hx Maternal Gestational Diabet: No Hx Hemorrhage: No Delivery History Hx Dystocia: No Hx Forceps Assisted Delivery: No Hx Vacuum Extraction Assisted: No Hx Placenta Abnormality: No Hx Distress: No Hx Large For Gestational Age I: No Hx Small for Gestational Age I: No Hx Section: No Hx Vaginal Delivery Post C-Sec: No Hx Blood Disorders: No Adverse Rxn to Tranfusion: No Patient Past Medical History PMhx: Depression Methamphetamine use SurgHx: Ovarian cyst removal Breast implants Social History/Family History HIV/AIDS: No Recent Infectious Disease Expo: No Sexually Transmitted Disease: Yes (chlamydia & trich treated during this ) Alcohol Use: Denies Use Recreational Drug Use: Yes (meth, last use 04/2019, has been through treatment this ) Smoking Cessation: Current every day smoker 2nd Hand Smoke Exposure: Yes Immunizations Hepatitis A: No Hepatitis B: No Tetanus Booster (TDap): Less than 5yrs (06/06/19) Rubella: immune RPR/VDRL: Negative GBS Status: Negative HBsAG: Negative OB - Admission Exam Physical Exam Vitals: Vital Signs 08/13/19 05:28 Temp 36.7 Pulse 78 Resp 18 Pulse Ox 98 O2 Delivery Room Air HEENT: NCAT Abdomen: Non tender Extremities: Normal Cervical Dilatation: 4cm Effacement: 50% Station: -3 Heart Rate: 140's Accelerations: Accelerations Present Decelerations: No Decelerations Short Term Variability: Present White Sugar Boiler Variability: Average (6-25) Contractions on Admission: 6-10 Minutes Apart Downs Scoring Tool (Modified) Dilation (cm): 3-4cm (2) Effacement (%): 31-51% (1) Descent/Station: -3 (0) Cervix Consistency: Medium(1) Cervix Position: Anterior (2) Add 1 point for: Each previous vaginal delivery (1) (1) Downs Score: 7 Labs Laboratory Tests Test 08/13/19 05:30 Range/Units White Blood Count 11.2 H 4.3-11.0 10^3/uL Red Blood Count 3.72 L 4.35-5.85 10^6/uL Hemoglobin 12.2 11.5-16.0 G/DL Hematocrit 36 35-52 % Mean Corpuscular Volume 96 80-99 FL Mean Corpuscular Hemoglobin 33 25-34 PG Mean Corpuscular Hemoglobin Concent 34 32-36 G/DL Red Cell Distribution Width 14.3 10.0-14.5 % Platelet Count 270 130-400 10^3/uL Mean Platelet Volume 10.8 H 7.4-10.4 FL Neutrophils (%) (Auto) 66 42-75 % Lymphocytes (%) (Auto) 21 12-44 % Monocytes (%) (Auto) 11 0-12 % Eosinophils (%) (Auto) 2 0-10 % Basophils (%) (Auto) 0 0-10 % Neutrophils # (Auto) 7.3 1.8-7.8 X 10^3 Lymphocytes # (Auto) 2.3 1.0-4.0 X 10^3 Monocytes # (Auto) 1.2 H 0.0-1.0 X 10^3 Eosinophils # (Auto) 0.3 0.0-0.3 10^3/uL Basophils # (Auto) 0.0 0.0-0.1 10^3/uL Urine Opiates Screen NEGATIVE NEGATIVE Urine Oxycodone Screen NEGATIVE NEGATIVE Urine Methadone Screen NEGATIVE NEGATIVE Urine Propoxyphene Screen NEGATIVE NEGATIVE Urine Barbiturates Screen NEGATIVE NEGATIVE Ur Tricyclic Antidepressants Screen NEGATIVE NEGATIVE Urine Phencyclidine Screen NEGATIVE NEGATIVE Urine Amphetamines Screen NEGATIVE NEGATIVE Urine Methamphetamines Screen NEGATIVE NEGATIVE Urine Benzodiazepines Screen NEGATIVE NEGATIVE Urine Cocaine Screen NEGATIVE NEGATIVE Urine Cannabinoids Screen NEGATIVE NEGATIVE OB - Assessment/Plan/Diagnosis Assessment Assessment: induction of labor Admission Dx Induction of labor 39 weeks gestation GBS neg History of methamphetamine use Admission Status: Inpatient Order (span 2 midnights) Reason for Inpatient Admission: Induction, labor, delivery and course Plan Plan: Induction Induction Method: per Pitocin Protocol BRAD ALVARENGA MD August 13, 2019 08:32
[2019-08-13] MEDS: LACTATED RINGERS 1,000 ML IV PRN ×2 (09:30→11:10)
--- NOTE | 2019-08-13 09:30 | NUR ---
WALI CARLSON VP SITE CALLED AT THIS TIME FOR EPIDURAL PLACEMENT
[2019-08-13] MEDS ORDERED: fentaNYL 2 mcg/ml BUPIVA 0.125 100 ML ONE (09:31)
[2019-08-13] MEDS ORDERED: fentaNYL INJECTION 100 MCG/2 ML AMP ONE (10:00)
--- NOTE | 2019-08-13 10:25 | Anesthesia-Regional Post-Op ---
Regional Patient Condition Mental Status: Alert, Oriented x3 Circulation: Same as Pre-Op Headache: Absent Sensation: Full Recovery Motor Block: Absent Post Op Complications Complications None Follow Up Care/Instructions Patient Instructions None needed. Anesthesia/Patient Condition Patient is doing well, no complaints, stable vital signs, no apparent adverse anesthesia problems. No complications reported per nursing. WALI CARLSON CRNA August 13, 2019 10:25
--- NOTE | 2019-08-13 10:45 | NUR ---
1032 VARIABLE DECEL TO 80 BMP, RETURNS TO BASELINE MOMENTARILY THEN DROPS TO 80 BMP AGAIN AT 1033, AND AGAIN AT 1036. tHIS rn AT BEDSIDE AT 1033, TURNS TO LEFT SIDE, NO RESOLUTION, TURNS PT TO RIGHT SIDE AT 1034. SVE BY RN AT 1035 RESULTS NO CERVICAL CHANGE, GUSH OF BLOOD WITH QUARTER SIZED CLOT AFTER SVE. RN NOTIFIES OTHER RN TO CALL DR ALVARENGA. DR ALVARENGA CALLED AND IS ON HER WAY TO HOSPITAL FOR EVALUATION. AT 1045 RN PL[address]ES FSE, TURNS PITOCIN RATE OFF, STARTS FLUID BOLUS OF LR, PLACES PT ON 10L [address] THRASHER OB HAND PRESSER APPEARS AT BEDSIDE FOR EVALUATION AT 1053. THIS RN GIVES DETAILED REPORT OF PT HISTORY, PT CARE, EVENTS, AND INTERVENTIONS. PT VSS, PT DENIES SS OF HYPOTENSION AFTER EPIDURAL. DR ALVARENGA APPEARS AT BEDSIDE AT 1055, SAME REPORT GIVEN TO DR ALVARENGA AT BEDSIDE. FHT STRIP IS REVIEWED BY BOTH DRS AT BEDSIDE.
--- NOTE | 2019-08-13 11:07 | Labor Progress Note ---
Labor Progress Note Labor Progress Note Date Seen by Provider: August 13, 2019 Time Seen by Provider: 10:55 Subjective: Pt denies complaints. Objective: Cervical exam: 70/-3 per nursing heart tones: 150 beats per minute, minimal variability Tocometer: 3 ctx/10 minutes Assessment/Plan: Izzy Stapleton is a (34 /Para 2 / 1,Gestational Age (wks)39 here for induction. Called by bedside nurse due to deep variable decelerations and vaginal bleeding. On my arrival, variability was present and decels improved. However, after leaving room, variability became minimal and late decelerations. Pitocin held, position changed, fluid bolus Anesthesia: epidural Monitor closely, may require urgent delivery shortly, discussed with Ob refrigeration specialist. Vitals - Labs Vital Signs - I&O Vital Signs Date Time Temp Pulse Resp B/P (MAP) Pulse Ox O2 Delivery O2 Flow Rate FiO2 08/13/19 09:00 60 107/55 (72) Room Air 08/13/19 08:45 78 105/65 (78) Room Air 08/13/19 08:30 74 18 109/64 (79) Room Air 08/13/19 08:15 64 110/54 (72) Room Air 08/13/19 08:00 60 114/74 (87) Room Air 08/13/19 07:45 Room Air 08/13/19 07:30 75 111/77 (88) 95 Room Air 08/13/19 07:15 36.4 60 16 105/64 (78) 96 Room Air 08/13/19 05:28 36.7 78 18 98 Room Air Labs Laboratory Tests 08/13/19 05:30: White Blood Count 11.2H, Red Blood Count 3.72L, Hemoglobin 12.2, Hematocrit 36, Mean Corpuscular Volume 96, Mean Corpuscular Hemoglobin 33, Mean Corpuscular Hemoglobin Concent 34, Red Cell Distribution Width 14.3, Platelet Count 270, Mean Platelet Volume 10.8H, Neutrophils (%) (Auto) 66, Lymphocytes (%) (Auto) 21, Monocytes (%) (Auto) 11, Eosinophils (%) (Auto) 2, Basophils (%) (Auto) 0, Neutrophils # (Auto) 7.3, Lymphocytes # (Auto) 2.3, Monocytes # (Auto) 1.2H, Eosinophils # (Auto) 0.3, Basophils # (Auto) 0.0, Urine Opiates Screen NEGATIVE, Urine Oxycodone Screen NEGATIVE, Urine Methadone Screen NEGATIVE, Urine Propoxyphene Screen NEGATIVE, Urine Barbiturates Screen NEGATIVE, Ur Tricyclic Antidepressants Screen NEGATIVE, Urine Phencyclidine Screen NEGATIVE, Urine Amphetamines Screen NEGATIVE, Urine Methamphetamines Screen NEGATIVE, Urine Benzodiazepines Screen NEGATIVE, Urine Cocaine Screen NEGATIVE, Urine Cannabinoids Screen NEGATIVE BRAD ALVARENGA MD August 13, 2019 11:07
[2019-08-13] MEDS ORDERED: LIDOCAINE PF 2% 5 ML (XYLOCAINE) VIAL ONE (11:32)
[2019-08-13] MEDS ORDERED: BUPIVACAINE 0.5% 30 ML (SENSORCAINE) VIAL ONE (11:32)
[2019-08-13] MEDS ORDERED: CITRIC ACID/SOB CIT (BICITRA) 30 ML UDC ONE (11:33)
[2019-08-13] MEDS ORDERED: ceFAZolin 2 GM IV Premixed 50 ML ONE (11:33)
[2019-08-13] MEDS ORDERED: FAMOTIDINE 20MG/2ML IV (PEPCID) ONE (11:33)
[2019-08-13] MEDS ORDERED: METOCLOPRAMIDE INJ 10 MG/2 ML (REGLAN) ONE (11:33)
[2019-08-13] MEDS ORDERED: metroNIDAZOLE 500MG/100ML IVPB 100 ML ONE (11:34)
[2019-08-13] MEDS ORDERED: OXYTOCIN PRE-MIX DRIP 1,000 ML IV ONE (11:37)
[2019-08-13] MEDS ORDERED: CITRIC ACID/SOB CIT (BICITRA) 30 ML UDC PO ONE (11:45)
[2019-08-13] MEDS ORDERED: METOCLOPRAMIDE INJ 10 MG/2 ML (REGLAN) IV ONE (11:45)
[2019-08-13] MEDS ORDERED: metroNIDAZOLE 500MG/100ML IVPB 100 ML IV ONE (11:45)
[2019-08-13] MEDS ORDERED: ceFAZolin 2 GM IV Premixed 50 ML IV ONE (11:45)
[2019-08-13] MEDS ORDERED: CATHETER FLUSH 10 ML SYR IV PRN (11:45)
[2019-08-13] MEDS ORDERED: FAMOTIDINE 20MG/2ML IV (PEPCID) IV ONE (11:45)
--- NOTE | 2019-08-13 11:50 | NUR ---
PT TRANSFERRED TO OR VIA CART WITH OR STAFF AT THIS TIME.
[2019-08-13] MEDS ORDERED: TETANUS,DIPTH,PERTUSS P/F (BOOSTRIX) 0.5 ML VIAL IM ONE (12:00)
[2019-08-13] MEDS ORDERED: ONDANSETRON 4 MG/2 ML (SDV) Z0FRAN IVP PRN (12:00)
[2019-08-13] MEDS ORDERED: MEASLES,MUMPS,RUBELLA 1 EA INJ SC ONE (12:00)
[2019-08-13] MEDS ORDERED: ONDANSETRON 4 MG/2 ML (SDV) Z0FRAN ONE (12:15)
--- NOTE | 2019-08-13 13:50 | NUR ---
Report received form [place]
--- NOTE | 2019-08-13 14:00 | NUR ---
THIS RN TAKES OVER CARE ON PT AT THIS TIME. FUNDUS FIRM, LEVEL WITH UMBILICUS, LIGHT BLEEDING. PT CURRENTLY . DENIES COMPLAINTS OR NEEDS AT THIS TIME. CALL LIGHT WITHIN REACH, SO AT BEDSIDE. RN WILL CONTINUE TO CHECK ON PT REGULARLY.
[2019-08-13] MEDS: KETOROLAC 30 MG/ML VIAL IVP SCH ×2 (14:20→20:21)
--- NOTE | 2019-08-13 16:53 | OPERATIVE REPORT ---
DATE OF SERVICE: 08/13/2019 PREOPERATIVE DIAGNOSIS: Term in labor with nonreassuring heart rate pattern/late decels. POSTOPERATIVE DIAGNOSIS: Term in labor with nonreassuring heart rate pattern/late decels. OPERATIVE PROCEDURE: Primary low transverse delivery of a viable female with Apgars of 8 and 9 at 1 and 5 minutes respectively, weight of 5 pounds 9 ounces. Cord blood pH of 7.26 and a time of 1204. Stack Clerk for delivery was Dr. Vines. OPERATIVE DESCRIPTION: With the patient in the supine position under satisfactory epidural analgesia, she was prepped and draped in the usual fashion for abdominal surgery. Calvo catheter was placed in the urinary bladder. A Pfannenstiel incision was made through the skin with a scalpel and the patient's abdomen entered in the usual manner. Bladder retractor was placed into position and clean scalpel was used to make a 4 cm hysterotomy incision transversely across the uterine segment that was extended by blunt dissection as well. A vigorous viable female was delivered via the uterine incision. Infant had Apgars and status as noted above. The was bulb suctioned on delivery of the head and again on completion of delivery. The umbilical cord was doubly clamped and cut and the infant passed to the finish mender in attendance for delivery. Cord bloods were obtained. The placenta delivered spontaneously Hernandez. It was normal with a small accessory lobe. There was a 3-vessel cord. The placenta was sent to pathology for permanent section. The uterus was exteriorized. Anterior wiped clean with a wet laparotomy sponge. The uterine incision was then closed with a running locked suture of 2-0 Vicryl. Hemostasis was complete. The uterus was returned to the abdominal cavity. All blood clot and debris removed through the abdominal cavity. Sponge and needle counts were correct and hemostasis assured. The anterior parietal peritoneum was closed with a running suture of 2-0 Vicryl. Rectus muscles were closed sutures where rectus fascia was closed with 2-0 Vicryl, subcutaneous tissue was closed with 2-0 Vicryl and the skin was stapled. Sponge and needle counts were correct on completion of the procedure. Estimated blood loss was around 400 mL. The patient tolerated the procedure well and was transferred to the recovery room in stable condition. The had been taken stable to the full term nursery under the care of the finish mender. Job ID: [id number] DocumentID: [id number] Dictated Date: 08/13/2019 12:39:51 Faculty Support Coordinator Date: 08/13/2019 16:52:41 Dictated By: ESTELITA SPEAR MD
[2019-08-13] MEDS: oxyCODONE/APAP 10/325MG (PERCOCET 10) TABLET PO PRN (17:55)
--- NOTE | 2019-08-13 19:00 | NUR ---
REPORT GIVEN TO JULIET RESENDIZ RN
--- NOTE | 2019-08-13 19:40 | NUR ---
Pt. ambulated to bathroom with standby assist without difficulty. Positive void noted.
[2019-08-13] MEDS: DOCUSATE SODIUM 100 MG (COLACE) CAP PO SCH ×2 (20:20)
[2019-08-14 00:15] VITALS: BP 102/68
[2019-08-14] MEDS: oxyCODONE/APAP 10/325MG (PERCOCET 10) TABLET PO PRN ×4 (00:21→19:56)
[2019-08-14] MEDS: KETOROLAC 30 MG/ML VIAL IVP SCH ×2 (02:28→10:38)
[2019-08-14 04:55] VITALS: BP 95/60
--- NOTE | 2019-08-14 07:42 | NUR ---
DR. SPEAR TO PT'S BEDSIDE.
--- NOTE | 2019-08-14 07:59 | Progress Note ---
Standard Progress Note Progress Notes/Assess & Plan Date Seen by a Provider: August 14, 2019 Time Seen by a Provider: 07:58 Progress/Assessment & Plan This patient is without complaint. She is ambulating, voiding, tolerating oral intake well has good pain control. Vital Signs Date Time Temp Pulse Resp B/P (MAP) Pulse Ox O2 Delivery O2 Flow Rate FiO2 08/14/19 04:55 36.8 64 16 95/60 (72) 97 Room Air 08/14/19 00:15 36.8 64 16 102/68 (79) 96 Room Air 08/13/19 20:20 36.6 86 16 96/59 (71) 96 Room Air 08/13/19 17:20 36.7 68 16 92/55 (67) 97 Room Air 08/13/19 14:00 37.1 74 16 113/50 (71) 97 Room Air 08/13/19 13:30 37 16 98/58 (71) 97 Room Air 08/13/19 13:30 Room Air 08/13/19 13:15 Room Air 08/13/19 13:15 37.4 16 120/62 (81) 97 Room Air 08/13/19 13:00 Room Air 08/13/19 13:00 36.9 16 94/60 (71) 96 Room Air 08/13/19 12:45 37.2 16 90/48 (62) 94 Room Air 08/13/19 12:45 Room Air 08/13/19 12:30 36.7 16 97/44 (61) 97 Room Air 08/13/19 12:30 Room Air 08/13/19 11:45 63 105/54 (71) 100 Non Rebreather 10.00 08/13/19 11:30 65 102/58 (73) 100 Non Rebreather 10.00 08/13/19 11:15 63 97/56 (70) 99 Non Rebreather 10.00 08/13/19 11:00 36.8 75 16 100/60 (73) 96 Room Air 08/13/19 10:55 65 98/55 (69) 97 Room Air 08/13/19 10:50 71 102/59 (73) 94 Room Air 08/13/19 10:45 71 110/66 (81) 96 Room Air 08/13/19 10:40 77 116/65 (82) 97 Room Air 08/13/19 10:35 60 107/62 (77) 96 Room Air 08/13/19 10:30 60 110/60 (77) 97 Room Air 08/13/19 10:27 64 106/60 (75) 97 Room Air 08/13/19 10:25 58 108/58 (75) 96 Room Air 08/13/19 10:22 72 104/58 (73) 97 Room Air 08/13/19 10:19 67 104/55 (71) 97 Room Air 08/13/19 10:17 77 112/56 (74) 97 Room Air 08/13/19 10:15 67 119/58 (78) 97 Room Air 08/13/19 10:10 67 114/64 (81) 98 Room Air 08/13/19 10:00 75 115/83 (94) 98 Room Air 08/13/19 09:45 37.0 65 18 127/74 (91) 98 Room Air 08/13/19 09:30 60 107/63 (78) Room Air 08/13/19 09:15 58 118/59 (78) Room Air 08/13/19 09:00 60 107/55 (72) Room Air 08/13/19 08:45 78 105/65 (78) Room Air 08/13/19 08:30 74 18 109/64 (79) Room Air 08/13/19 08:15 64 110/54 (72) Room Air 08/13/19 08:00 60 114/74 (87) Room Air I & O 08/14/19 07:00 Intake Total 5250 ml Output Total 1025 ml Balance 4225 ml Vital signs are stable. Patient is afebrile. The abdomen is benign. The surgical incision is clean dry and intact. Extremities show no clubbing cyanosis. There is no Homans sign. Assessment and plan postoperative day number 1 status post primary delivery at 39 weeks gestation. Patient is doing well and will have routine convalescence care Final Diagnosis 39 week primary delivery ESTELITA SPEAR MD August 14, 2019 07:59
[2019-08-14] MEDS ORDERED: IBUP-1780 PO (08:01)
[2019-08-14] MEDS ORDERED: OXYC1TAB12 PO (08:01)
[2019-08-14] MEDS ORDERED: DCS100C PO (08:01)
--- NOTE | 2019-08-14 08:02 | Discharge Inst-Surgical ---
Discharge Inst-Surgical Depart Medication/Instructions New, Converted or Re-Newed RX: RX on Chart Consults/Follow Up Patient Instructions: As directed Orders & Referrals Follow Up Appt: RTC 1 week for incision check with Dr. Osman Call to make follow up appt. for patient in [address] Vines. Wound Care: Remove terrie, apply benzoin and steri strips. Activity Per routine post instructions. Please call in RX to patient pharmacy. Diet as tolerated Patient may shower or tub bathe as desired. Continue home meds Activity Activity as Tolerated: No Diet Discharge Diet: No Restrictions ESTELITA OSMAN MD August 14, 2019 08:02
--- NOTE | 2019-08-14 08:10 | Anesthesia-Regional Post-Op ---
Regional Patient Condition Mental Status: Alert, Oriented x3 Circulation: Same as Pre-Op Headache: Absent Sensation: Full Recovery Motor Block: Absent Post Op Complications Complications None Follow Up Care/Instructions Patient Instructions None needed. Anesthesia/Patient Condition Patient is doing well, no complaints, stable vital signs, no apparent adverse anesthesia problems. No complications reported per nursing. BABATUNDE RYDER CRNA August 14, 2019 08:10
[2019-08-14 10:37] VITALS: BP 109/66
[2019-08-14] MEDS: DOCUSATE SODIUM 100 MG (COLACE) CAP PO SCH ×2 (10:38→19:56)
--- NOTE | 2019-08-14 10:40 | NUR ---
PT IN BED. VS OBTAINED. MEDS GIVEN; SEE EMAR FOR FURTHER. INITIAL SHIFT ASSESSMENT COMPLETED; SEE INTERVENTION FOR FURTHER. NO NEEDS VOICED. CALL LIGHT WITHIN REACH.
--- NOTE | 2019-08-14 12:38 | NUR ---
CM/SS visited with the patient for social work consult. Plan: [facility] until September 11. A DCF report was made due to current legal charges. The ID number for report is [id number] Resources: The patient is set up with the [facility] in [place]. She states they have her set up with a car seat and a pack-n-play. The patient verbalized she has diapers but does not have any formula at this time. She does have Medicaid but it's just medical for insurance and receives food stamps. The patient reports that she does not have any income. She is currently signed up to receive [facility] benefits. CM/SS attempted to get approval to sign patient up for [employer] [facility] so patient could access the diaper stock. However, the patient denied letting this ss make a referral at this time. CM/SS provided her with handouts on both resources. Report: Intake ID is [id number]. CM/SS made a report due to current legal charges and upcoming court date for possession of Methamphetamines. CM/SS stated in the report, it was not due to a safety concern when being discharge from hospital but for a outpatient plan and follow up. Summary: The patient was in bed with significant other at bedside. The baby (Stephan) was not in the room during the visit. CM/SS received referral for past drug abuse. The patient reports that she has been sober since March 01 and is currently living in a [facility] use. She has been staying there since May and is planning on being there till September 11. Her UDS came back negative; however, they are testing Meconium sample. CM/SS asked the patient if she has any legal charges due to substances. She stated "yes" and has a current one for possession of Methamphetamines. The patient has a court date set for September 01. CM/SS asked the patient if she had a support system. She stated that she has a big support group with the [facility] and her family/significant other. No other needs at this time.
[2019-08-14 13:33] VITALS: BP 101/61
--- NOTE | 2019-08-14 13:33 | NUR ---
PT AT THIS TIME. VS OBTAINED. NO NEEDS VOICED.
[2019-08-14 18:38] VITALS: BP 104/68
[2019-08-14] MEDS: IBUPROFEN 800 MG (MOTRIN) TAB PO SCH (18:40)
[2019-08-14 20:00] VITALS: BP 113/59
--- NOTE | 2019-08-14 21:00 | NUR ---
Dr. Osman notified of swelling under incision and in vagina. No new orders received.
[2019-08-15 00:20] VITALS: BP 101/56
[2019-08-15] MEDS: IBUPROFEN 800 MG (MOTRIN) TAB PO SCH ×3 (00:20→11:47)
[2019-08-15] MEDS: oxyCODONE/APAP 10/325MG (PERCOCET 10) TABLET PO PRN ×3 (03:14→11:47)
[2019-08-15 06:10] VITALS: BP 106/53
[2019-08-15 07:20] VITALS: BP 100/59
[2019-08-15] MEDS: DOCUSATE SODIUM 100 MG (COLACE) CAP PO SCH (07:34)
--- NOTE | 2019-08-15 08:33 | Progress Note ---
Standard Progress Note Progress Notes/Assess & Plan Date Seen by a Provider: August 15, 2019 Time Seen by a Provider: 08:32 Progress/Assessment & Plan This patient is without complaint. She is ambulating, voiding, tolerating oral intake well has good pain control. Vital Signs Date Time Temp Pulse Resp B/P (MAP) Pulse Ox O2 Delivery O2 Flow Rate FiO2 08/14/19 04:55 36.8 64 16 95/60 (72) 97 Room Air 08/14/19 00:15 36.8 64 16 102/68 (79) 96 Room Air 08/13/19 20:20 36.6 86 16 96/59 (71) 96 Room Air 08/13/19 17:20 36.7 68 16 92/55 (67) 97 Room Air 08/13/19 14:00 37.1 74 16 113/50 (71) 97 Room Air 08/13/19 13:30 37 16 98/58 (71) 97 Room Air 08/13/19 13:30 Room Air 08/13/19 13:15 Room Air 08/13/19 13:15 37.4 16 120/62 (81) 97 Room Air 08/13/19 13:00 Room Air 08/13/19 13:00 36.9 16 94/60 (71) 96 Room Air 08/13/19 12:45 37.2 16 90/48 (62) 94 Room Air 08/13/19 12:45 Room Air 08/13/19 12:30 36.7 16 97/44 (61) 97 Room Air 08/13/19 12:30 Room Air 08/13/19 11:45 63 105/54 (71) 100 Non Rebreather 10.00 08/13/19 11:30 65 102/58 (73) 100 Non Rebreather 10.00 08/13/19 11:15 63 97/56 (70) 99 Non Rebreather 10.00 08/13/19 11:00 36.8 75 16 100/60 (73) 96 Room Air 08/13/19 10:55 65 98/55 (69) 97 Room Air 08/13/19 10:50 71 102/59 (73) 94 Room Air 08/13/19 10:45 71 110/66 (81) 96 Room Air 08/13/19 10:40 77 116/65 (82) 97 Room Air 08/13/19 10:35 60 107/62 (77) 96 Room Air 08/13/19 10:30 60 110/60 (77) 97 Room Air 08/13/19 10:27 64 106/60 (75) 97 Room Air 08/13/19 10:25 58 108/58 (75) 96 Room Air 08/13/19 10:22 72 104/58 (73) 97 Room Air 08/13/19 10:19 67 104/55 (71) 97 Room Air 08/13/19 10:17 77 112/56 (74) 97 Room Air 08/13/19 10:15 67 119/58 (78) 97 Room Air 08/13/19 10:10 67 114/64 (81) 98 Room Air 08/13/19 10:00 75 115/83 (94) 98 Room Air 08/13/19 09:45 37.0 65 18 127/74 (91) 98 Room Air 08/13/19 09:30 60 107/63 (78) Room Air 08/13/19 09:15 58 118/59 (78) Room Air 08/13/19 09:00 60 107/55 (72) Room Air 08/13/19 08:45 78 105/65 (78) Room Air 08/13/19 08:30 74 18 109/64 (79) Room Air 08/13/19 08:15 64 110/54 (72) Room Air 08/13/19 08:00 60 114/74 (87) Room Air I & O 08/14/19 07:00 Intake Total 5250 ml Output Total 1025 ml Balance 4225 ml Vital signs are stable. Patient is afebrile. The abdomen is benign. The surgical incision is clean dry and intact. Extremities show no clubbing cyanosis. There is no Homans sign. Assessment and plan postoperative day number 1 status post primary delivery at 39 weeks gestation. Patient is doing well and will have routine convalescence care August 15, 2019 Patient is without complaint. She is ablating, voiding, tolerating all intake well has good pain control. Patient denies chest pain, denies shortness breath, denies nausea vomiting, and denies headache. Patient is requesting discharge home. Patient reports the labile and mons swelling noted yesterday has improved . Vital Signs Date Time Temp Pulse Resp B/P (MAP) Pulse Ox O2 Delivery O2 Flow Rate FiO2 08/15/19 06:10 36.4 64 16 106/53 (70) 96 Room Air 08/15/19 00:20 36.4 73 16 101/56 (71) 95 Room Air 08/14/19 20:00 37.3 82 16 113/59 (77) 97 Room Air 08/14/19 18:38 37.3 77 18 104/68 (80) 97 Room Air 08/14/19 13:33 37.1 78 18 101/61 (74) 96 Room Air 08/14/19 10:37 36.8 62 18 109/66 (80) 98 Room Air I & O 08/15/19 07:00 Output Total 450 ml Balance -450 ml Vital signs are stable. Patient is afebrile. The abdomen is benign. The surgical incision is clean dry and intact. There is minimal edema at the mons and in the labia majora. Extremities show no clubbing or cyanosis. There is no Homans sign. Assessment and plan postoperative day number 2 status post primary delivery at 39 weeks gestation. Patient doing well will be discharged home with follow-up in clinic Final Diagnosis 39 week primary delivery ESTELITA SPEAR MD August 15, 2019 08:33
--- NOTE | 2019-08-15 11:17 | NUR ---
Pt discharge instruction given. Verbalized understanding. Wilfredo removed - incision cleansed and steri strips applied. Addendum: 08/15/19 at 1122 by CARY ROSADO RN Pt stated she received her Tdap in office during .
[2019-08-15 11:31] VITALS: BP 100/59
--- NOTE | 2019-08-15 12:00 | NUR ---
Discharged to ER exit via wheelchair. Accompanied by Lalo and RN.
== END 2019-08-15 12:00 | disposition home or self-care (01) | DRG 788 ==
LOC: LDRP 05:05
PROVIDERS: ADMIT Family Medicine; ATTEND Family Medicine
PROC: 3E033VJ Introduction of Other Hormone into Peripheral Vein, Percutaneous Approach (ICD-10-PCS; 2019-08-13)
PROC: 10D00Z1 Extraction of Products of Conception, Low, Open Approach (ICD-10-PCS; principal; 2019-08-13 11:51)
DX: O99.344 Other mental disorders complicating childbirth (principal); F32.9 Major depressive disorder, single episode, unspecified; O76 Abnormality in fetal heart rate and rhythm complicating labor and delivery; Z37.0 Single live birth; Z3A.39 39 weeks gestation of pregnancy
CPT/HCPCS: 36415; 80306; 85025; 86780; 86850; 86900; 86901; 94664